=== PATIENT | male | born 1990 | race Caucasian/White ===

== ENCOUNTER 2018-09-25 11:35 | Emergency (ER) | payer SELFPAY ==
[2018-09-25] MEDS ORDERED: ALBUTEROL 2.5 MG/3 ML NEB SOL ONE (12:18)
[2018-09-25] MEDS ORDERED: IPRATROPIUM BROM 0.5MG/2.5ML ONE (12:18)
--- NOTE | 2018-09-25 12:36 | RAD REPORT ---
EXAM DESCRIPTION: RAD - Chest Pa And Lat (2 Views) - 09/25/2018 12:30 pm CLINICAL HISTORY: Hemoptysis;Cough Chest pain. COMPARISON: No comparisons FINDINGS: The lungs are clear. The heart is normal in size. No displaced fractures. IMPRESSION: No acute or concerning finding suspected.
--- NOTE | 2018-09-25 13:02 | ER ---
Nurse's Notes [facility] Name: Stanton Florez Jr Age: 27 yrs Sex: Male : 1990 Arrival Date: 09/25/2018 Time: 11:37 Bed 11 Private MD: Diagnosis: Influenza due to identified novel influenza A virus with other respiratory manifestations Presentation: 09/25 11:41 Presenting complaint: Productive cough, sore throat, sinus congestion, chills, and hb nausea x 2 days. Transition of care: patient was not received from another setting of care. Onset of symptoms was September 24, 2018. Risk Assessment: Do you want to hurt yourself or someone else? Patient reports no desire to harm self or others. Care prior to arrival: None. 11:41 Method Of Arrival: Ambulatory hb 11:41 Acuity: EDMUNDO 4 hb 11:55 Initial Sepsis Screen: Does the patient meet any 2 criteria? No. Patient's initial aa5 sepsis screen is negative. Does the patient have a suspected source of infection? No. Patient's initial sepsis screen is negative. Historical: - Allergies: 11:42 No Known Allergies; hb - Home Meds: 11:42 None [Active]; hb - PMHx: 11:42 None; hb - PSHx: 11:42 Ear Tubes; hb - Immunization history:: Adult Immunizations up to date. - Social history:: Smoking status: Patient/guardian denies using tobacco. - Ebola Screening: : No symptoms or risks identified at this time. Screenin:55 Abuse screen: Denies threats or abuse. Nutritional screening: No deficits noted. aa5 Tuberculosis screening: No symptoms or risk factors identified. Fall Risk None identified. Vital Signs: 11:42 BP 125 / 82; Pulse 102; Resp 18; Temp 97.3; Pulse Ox 96% on R/A; Weight 129.27 kg; hb Height 5 ft. 10 in. (177.80 cm); Pain 6/10; 11:42 Body Mass Index 40.89 (129.27 kg, 177.80 cm) hb ED Course: 11:37 Patient arrived in ED. as 11:42 Triage completed. hb 11:42 Arm band placed on. hb 11:47 Edenilson Cárdenas PA is PHCP. cp 11:47 Sean Ferrell MD is Attending Physician. cp 11:53 Maryjane Solano, RN is Primary Nurse. aa5 11:55 Patient has correct armband on for positive identification. Bed in low position. Call aa5 light in reach. Side rails up X 1. 11:56 Flu and/or RSV swab sent to lab. Strep swab sent to lab. aa5 12:18 Patient moved to radiology via wheelchair. jb2 12:28 X-ray completed. Patient tolerated procedure well. Patient moved back from radiology. jb2 12:30 XRAY Chest Pa And Lat (2 Views) In Process Unspecified. EDMS Administered Medications: 12:11 Drug: Albuterol 2.5 mg Route: Inhalation; aa5 12:11 Drug: AtroVENT Aerosol 0.5 mg Route: Inhalation; aa5 Outcome: 13:01 Discharge ordered by . cp 13:11 Patient left the ED. aa5 Signatures: Dispatcher [employer] EDMS Gerry Yap jb2 Shayy Ozuna Audri, RN RN aa5 Edenilson Cárdenas PA PA cp Olga Strong, JOSE RN hb
--- NOTE | 2018-09-25 13:02 | EDPHYS ---
Physician Documentation [facility] Name: Stanton Florez Jr Age: 27 yrs Sex: Male : 1990 Arrival Date: 09/25/2018 Time: 11:37 Bed 11 Private MD: ED Physician Sean Ferrell HPI: 09/25 11:53 This 27 yrs old Male presents to ER via Ambulatory with complaints of Flu cp Symptoms. 11:53 The patient or guardian reports cough, that is intermittent, with productive sputum, cp that is purulent, with streaks of blood. 11:53 Onset: The symptoms/episode began/occurred 2 day(s) ago. Associated signs and symptoms: cp Pertinent positives: chest pain, with cough, fever, sore throat, Pertinent negatives: diarrhea, vomiting. Severity of symptoms: in the emergency department the symptoms are unchanged despite home interventions. Historical: - Allergies: 11:42 No Known Allergies; hb - Home Meds: 11:42 None [Active]; hb - PMHx: 11:42 None; hb - PSHx: 11:42 Ear Tubes; hb - Immunization history:: Adult Immunizations up to date. - Social history:: Smoking status: Patient/guardian denies using tobacco. - Ebola Screening: : No symptoms or risks identified at this time. ROS: 12:00 Constitutional: Negative for body aches, fever, poor PO intake. cp 12:00 Eyes: Negative for injury, pain, redness, and discharge. cp 12:00 ENT: Positive for sore throat, Negative for drainage from ear(s), ear pain, difficulty swallowing, difficulty handling secretions. 12:00 Cardiovascular: Positive for chest pain, with cough. 12:00 Respiratory: Positive for cough, with blood streaked sputum, Negative for wheezing. 12:00 Abdomen/GI: Negative for abdominal pain, vomiting, diarrhea, constipation. 12:00 Skin: Negative for cellulitis, rash. 12:00 Neuro: Negative for altered mental status, headache, weakness. 12:00 All other systems are negative. Exam: 12:05 Constitutional: The patient appears in no acute distress, alert, awake, cp non-diaphoretic, non-toxic, well developed, well nourished, obese. 12:05 Head/Face: Normocephalic, atraumatic. cp 12:05 Eyes: Periorbital structures: appear normal, Conjunctiva: normal, no exudate, no injection, Sclera: no appreciated abnormality, Lids and lashes: appear normal, bilaterally. 12:05 ENT: External ear(s): are unremarkable, Ear canal(s): are normal, clear, TM's: bulging, is not appreciated, bilaterally, dullness, bilaterally, erythema, is not appreciated, bilaterally, Nose: is normal, Mouth: Lips: moist, Oral mucosa: moist, Posterior pharynx: Airway: no evidence of obstruction, patent, Tonsils: no enlargement, no exudate, swelling, is not appreciated, erythema, that is mild, exudate, is not appreciated. 12:05 Neck: ROM/movement: is normal, is supple, without pain, no range of motions limitations, no meningismus, no nuchal rigidity. 12:05 Chest/axilla: Inspection: normal, Palpation: is normal, no crepitus, no tenderness. 12:05 Cardiovascular: Rate: tachycardic, Rhythm: regular, Edema: is not appreciated, JVD: is not appreciated. 12:05 Respiratory: the patient does not display signs of respiratory distress, Respirations: normal, no use of accessory muscles, no retractions, no splinting, no tachypnea, labored breathing, is not present, Breath sounds: bronchial sounds, that are mild, stridor, is not appreciated, + upper airway congestion. wheezing: is not appreciated. 12:05 Abdomen/GI: Inspection: obese Vital Signs: 11:42 BP 125 / 82; Pulse 102; Resp 18; Temp 97.3; Pulse Ox 96% on R/A; Weight 129.27 kg; hb Height 5 ft. 10 in. (177.80 cm); Pain 6/10; 11:42 Body Mass Index 40.89 (129.27 kg, 177.80 cm) hb MDM: 11:47 Patient medically screened. cp 13:00 Data reviewed: vital signs, nurses notes, lab test result(s), radiologic studies, plain cp films. 13:00 Differential diagnosis: bronchitis, flu, URI, pneumonia. Test interpretation: by ED cp physician or midlevel provider: plain radiologic studies. Counseling: I had a detailed discussion with the patient and/or guardian regarding: the historical points, exam findings, and any diagnostic results supporting the discharge/admit diagnosis, lab results, radiology results, to return to the emergency department if symptoms worsen or persist or if there are any questions or concerns that arise at home. Response to treatment: the patient's symptoms have mildly improved after treatment. 09/25 11:53 Order name: Influenza Screen (a \T\ B); Complete Time: 12:26 09/25 12:55 Interpretation: Abnormal: FLUA FLU A ----- \T\nbsp; \T\nbsp; \T\nbsp; \T\nbsp; \T\nbsp; \T\nbs p; cp \T\nbsp; \T\nbsp; \T\nbsp; POSITIVE for FLU A protein antigen. 03 11:53 Order name: Strep; Complete Time: 12:26 09/25 11:53 Order name: XRAY Chest Pa And Lat (2 Views); Complete Time: 12:55 09/25 12:55 Interpretation: Report reviewed. 09/25 12:21 Order name: Throat Culture EDMS Administered Medications: 12:11 Drug: Albuterol 2.5 mg Route: Inhalation; aa5 12:11 Drug: AtroVENT Aerosol 0.5 mg Route: Inhalation; aa5 Disposition: 14:48 Co-signature as Attending Physician, Sean Ferrell MD. rn Disposition: 09/25/18 13:01 Discharged to Home. Impression: Influenza due to identified novel influenza A virus with other respiratory manifestations. - Condition is Stable. - Discharge Instructions: Influenza, Adult. - Prescriptions for Ibuprofen 800 mg Oral Tablet - take 1 tablet by ORAL route every 8 hours As needed take with food; 30 tablet. Tamiflu 75 mg Oral Capsule - take 1 capsule by ORAL route every 12 hours for 5 days; 10 capsule. Tessalon Perles 100 mg Oral Capsule - take 1 capsule by ORAL route every 8 hours As needed; 15 capsule. Albuterol Sulfate 90 mcg/actuation - inhale 1-2 puff by INHALATION route every 4-6 hours; 1 Inhaler. - Work release form, Medication Reconciliation Form, Thank You Letter, Antibiotic Education, Prescription Opioid Use form. - Follow up: Private Physician; When: 2 - 3 days; Reason: Worsening of condition. - Problem is new. - Symptoms have improved. Signatures: Dispatcher [employer] EDMS Sean Ferrell MD MD rn Calderon, Audri, RN RN aa5 Edenilson Cárdenas PA PA cp Olga Strong RN RN Corrections: (The following items were deleted from the chart) 13:11 13:01 09/25/2018 13:01 Discharged to Home. Impression: Influenza due to identified aa5 novel influenza A virus with other respiratory manifestations. Condition is Stable. Forms are Medication Reconciliation Form, Thank You Letter, Antibiotic Education, Prescription Opioid Use. Follow up: Private Physician; When: 2 - 3 days; Reason: Worsening of condition. Problem is new. Symptoms have improved. cp
== END 2018-09-25 13:11 | disposition home or self-care (01) ==
LOC: ER 11:35
DX: J11.1 Influenza due to unidentified influenza virus with other respiratory manifestations (principal)
CPT/HCPCS: 71046; 87070; 87081; 87804; 99284

== ENCOUNTER 2019-02-11 11:04 | Emergency (ER) | payer SELFPAY ==
[2019-02-11] MEDS ORDERED: KETOROLAC 30 MG/ML INJ ONE (11:35)
[2019-02-11] MEDS ORDERED: dexAMETHasone 10 MG/ML VIAL ONE (11:35)
--- NOTE | 2019-02-11 12:31 | ER ---
Nurse's Notes [facility] Name: Stanton Florez Jr Age: 28 yrs Sex: Male : 1990 Arrival Date: 02/11/2019 Time: 11:07 Bed 6 Private MD: Diagnosis: Low back pain Presentation: 02/11 11:13 Presenting complaint: Patient states: Low back pain since this AM. Transition of care: aj patient was not received from another setting of care. Onset of symptoms was February 11, 2019. Risk Assessment: Do you want to hurt yourself or someone else? Patient reports no desire to harm self or others. Initial Sepsis Screen: Does the patient meet any 2 criteria? No. Patient's initial sepsis screen is negative. Does the patient have a suspected source of infection? No. Patient's initial sepsis screen is negative. Care prior to arrival: None. 11:13 Method Of Arrival: Ambulatory 11:13 Acuity: EDMUNDO 4 Triage Assessment: 11:14 General: Appears in no apparent distress. comfortable, Behavior is calm, cooperative, aj appropriate for age. Pain: Complains of pain in low back area. Neuro: Level of Consciousness is awake, alert, obeys commands, Oriented to person, place, time, situation, Appropriate for age. Respiratory: Airway is patent Respiratory effort is even, unlabored, Respiratory pattern is regular, symmetrical. Derm: Skin is intact, is healthy with good turgor, Skin is pink, warm \T\ dry. normal. Musculoskeletal: Circulation, motion, and sensation intact. Range of motion: intact in all extremities, Reports pain in low back area. Historical: - Allergies: 11:14 No Known Allergies; aj - Immunization history:: Adult Immunizations up to date. - Social history:: Smoking status: Patient/guardian denies using tobacco. - Ebola Screening: : Patient negative for fever greater than or equal to 101.5 degrees Fahrenheit, and additional compatible Ebola Virus Disease symptoms Patient denies exposure to infectious person Patient denies travel to an Ebola-affected area in the 21 days before illness onset No symptoms or risks identified at this time. - Family history:: not pertinent. Screenin:22 Abuse screen: Denies threats or abuse. Denies injuries from another. Nutritional hj screening: No deficits noted. Tuberculosis screening: No symptoms or risk factors identified. Fall Risk None identified. Assessment: 11:22 General: Appears in no apparent distress. uncomfortable, Behavior is calm, cooperative, hj appropriate for age. Pain: Complains of pain in right low back and left low back and low back area. Neuro: Level of Consciousness is awake, alert, obeys commands, Oriented to person, place, time, situation, Appropriate for age. Cardiovascular: Heart tones S1 S2 present Capillary refill < 3 seconds Patient's skin is warm and dry. Respiratory: Airway is patent Respiratory effort is even, unlabored, Respiratory pattern is regular, symmetrical. GI: No signs and/or symptoms were reported involving the gastrointestinal system. : No signs and/or symptoms were reported regarding the genitourinary system. EENT: No signs and/or symptoms were reported regarding the EENT system. Derm: No signs and/or symptoms reported regarding the dermatologic system. Musculoskeletal: Reports pain in right low back and left low back. 12:01 Reassessment: Patient and/or family updated on plan of care and expected duration. Pain hj level reassessed. Patient is alert, oriented x 3, equal unlabored respirations, skin warm/dry/pink. awaiting XRAY:. 12:24 Reassessment: walked to XRAY;. hj 12:31 Reassessment: back in room;. hj 12:39 Reassessment: awaiting for provider to talk to pt for results and POC;. hj 12:51 Reassessment: awaiting for final read or result to cross over;. hj 13:14 Reassessment: provider in room for POC and D/C instructions;. Vital Signs: 11:14 BP 138 / 70; Pulse 94; Resp 16; Temp 97.6; Pulse Ox 98% on R/A; Weight 129.27 kg; aj Height 5 ft. 10 in. (177.80 cm); 12:15 BP 110 / 55; Pulse 90; Resp 18; Pulse Ox 100% on R/A; hj 11:14 Body Mass Index 40.89 (129.27 kg, 177.80 cm) ED Course: 11:07 Patient arrived in ED. as 11:09 Bipin Wei RN is Primary Nurse. 11:10 Edenilson Ness MD is Attending Physician. [facility] 11:14 Triage completed. 11:14 Arm band placed on left wrist. Patient placed in an exam room. aj 11:22 Patient has correct armband on for positive identification. Bed in low position. Call hj light in reach. Side rails up X 1. 12:32 X-ray completed. Patient tolerated procedure well. Patient moved back from radiology. [facility] 12:32 Lumbar Spine (3 Views) XRAY In Process Unspecified. EDMS 13:17 No provider procedures requiring assistance completed. Patient did not have IV access hj during this emergency room visit. Administered Medications: 11:15 Drug: TORadol 60 mg Route: IM; Site: left deltoid; hj 12:31 Follow up: Response: No adverse reaction; Pain is decreased hj 11:15 Drug: Decadron 10 mg Route: IM; Site: right deltoid; hj 12:31 Follow up: Response: No adverse reaction; Pain is decreased hj Outcome: 12:30 Discharge ordered by . gwen 13:17 Discharged to home ambulatory. 13:17 Condition: stable 13:17 Discharge instructions given to patient, Instructed on discharge instructions, follow up and referral plans. medication usage, Demonstrated understanding of instructions, follow-up care, medications, Prescriptions given X 4. 13:17 Patient left the ED. hj Signatures: Dispatcher [employer] Eunice Heath, RN RN Edenilson Hurd MD MD cha Harvey, [facility] Shayy Ozuna Henry, RN RN pranav Corrections: (The following items were deleted from the chart) 12:24 12:24 Reassessment: walked thru XRAY; hj
--- NOTE | 2019-02-11 12:31 | EDPHYS ---
Physician Documentation [facility] Name: Stanton Florez Jr Age: 28 yrs Sex: Male : 1990 Arrival Date: 02/11/2019 Time: 11:07 Bed 6 Private MD: JACKIE Physician Edenilson Ness HPI: 02/11 11:15 This 28 yrs old Male presents to ER via Ambulatory with complaints of Back gwen Pain. 11:15 The patient presents with pain that is acute. The symptoms are located in the low back. gwen Onset: The symptoms/episode began/occurred 1 day(s) ago. The pain does not radiate. Associated signs and symptoms: The patient has no apparent associated signs or symptoms. The problem was sustained when bending over, from twisting. Modifying factors: The patient symptoms are alleviated by remaining still, rest, the patient symptoms are aggravated by any movement, bending. Severity of symptoms: At their worst the symptoms were moderate, severe, in the emergency department the symptoms have improved, mildly. The patient has experienced similar episodes in the past, a few times. Historical: - Allergies: 11:14 No Known Allergies; aj - Immunization history:: Adult Immunizations up to date. - Social history:: Smoking status: Patient/guardian denies using tobacco. - Ebola Screening: : Patient negative for fever greater than or equal to 101.5 degrees Fahrenheit, and additional compatible Ebola Virus Disease symptoms Patient denies exposure to infectious person Patient denies travel to an Ebola-affected area in the 21 days before illness onset No symptoms or risks identified at this time. - Family history:: not pertinent. ROS: 11:15 Constitutional: Negative for fever, chills, and weight loss, Eyes: Negative for injury, gwen pain, redness, and discharge, ENT: Negative for injury, pain, and discharge, Neck: Negative for injury, pain, and swelling, Cardiovascular: Negative for chest pain, palpitations, and edema, Respiratory: Negative for shortness of breath, cough, wheezing, and pleuritic chest pain, Abdomen/GI: Negative for abdominal pain, nausea, vomiting, diarrhea, and constipation, : Negative for injury, bleeding, discharge, and swelling, MS/Extremity: Negative for injury and deformity, Skin: Negative for injury, rash, and discoloration, Neuro: Negative for headache, weakness, numbness, tingling, and seizure, Psych: Negative for depression, anxiety, suicide ideation, homicidal ideation, and hallucinations, Allergy/Immunology: Negative for hives, rash, and allergies, Endocrine: Negative for neck swelling, polydipsia, polyuria, polyphagia, and marked weight changes, Hematologic/Lymphatic: Negative for swollen nodes, abnormal bleeding, and unusual bruising. 11:15 Back: Positive for decreased range of motion, pain at rest, pain with movement. Exam: 11:15 Constitutional: This is a well developed, well nourished patient who is awake, alert, gwen and in no acute distress. Head/Face: Normocephalic, atraumatic. Eyes: Pupils equal round and reactive to light, extra-ocular motions intact. Lids and lashes normal. Conjunctiva and sclera are non-icteric and not injected. Cornea within normal limits. Periorbital areas with no swelling, redness, or edema. ENT: Nares patent. No nasal discharge, no septal abnormalities noted. Tympanic membranes are normal and external auditory canals are clear. Oropharynx with no redness, swelling, or masses, exudates, or evidence of obstruction, uvula midline. Mucous membranes moist. Neck: Trachea midline, no thyromegaly or masses palpated, and no cervical lymphadenopathy. Supple, full range of motion without nuchal rigidity, or vertebral point tenderness. No Meningismus. Chest/axilla: Normal chest wall appearance and motion. Nontender with no deformity. No lesions are appreciated. Cardiovascular: Regular rate and rhythm with a normal S1 and S2. No gallops, murmurs, or rubs. Normal PMI, no JVD. No pulse deficits. Respiratory: Lungs have equal breath sounds bilaterally, clear to auscultation and percussion. No rales, rhonchi or wheezes noted. No increased work of breathing, no retractions or nasal flaring. Abdomen/GI: Soft, non-tender, with normal bowel sounds. No distension or tympany. No guarding or rebound. No evidence of tenderness throughout. Male : Normal genitalia with no discharge or lesions. Skin: Warm, dry with normal turgor. Normal color with no rashes, no lesions, and no evidence of cellulitis. MS/ Extremity: Pulses equal, no cyanosis. Neurovascular intact. Full, normal range of motion. Neuro: Awake and alert, GCS 15, oriented to person, place, time, and situation. Cranial nerves II-XII grossly intact. Motor strength 5/5 in all extremities. Sensory grossly intact. Cerebellar exam normal. Normal gait. Psych: Awake, alert, with orientation to person, place and time. Behavior, mood, and affect are within normal limits. 11:15 Back: pain, that is moderate, ROM is painful, normal spinal alignment noted, CVA tenderness, that is mild, muscle spasm, is appreciated in the left low back and right low back. Vital Signs: 11:14 BP 138 / 70; Pulse 94; Resp 16; Temp 97.6; Pulse Ox 98% on R/A; Weight 129.27 kg; aj Height 5 ft. 10 in. (177.80 cm); 12:15 BP 110 / 55; Pulse 90; Resp 18; Pulse Ox 100% on R/A; hj 11:14 Body Mass Index 40.89 (129.27 kg, 177.80 cm) MDM: 11:12 Patient medically screened. [facility] 11:17 Data reviewed: vital signs, nurses notes, radiologic studies, plain films. [facility] 02/11 11:15 Order name: Lumbar Spine (3 Views) XRAY; Complete Time: 13:14 [facility] Administered Medications: 11:15 Drug: TORadol 60 mg Route: IM; Site: left deltoid; 12:31 Follow up: Response: No adverse reaction; Pain is decreased 11:15 Drug: Decadron 10 mg Route: IM; Site: right deltoid; 12:31 Follow up: Response: No adverse reaction; Pain is decreased Disposition: 02/11/19 12:30 Discharged to Home. Impression: Low back pain. - Condition is Stable. - Discharge Instructions: Back Pain, Adult, Musculoskeletal Pain, Back Injury Prevention, [id number], Back Pain, Adult, [id number]. - Prescriptions for Ibuprofen 600 mg Oral Tablet - take 1 tablet by ORAL route every 6 hours As needed take with food; 30 tablet. Skelaxin 800 mg Oral Tablet - take 1 tablet by ORAL route every 6 hours As needed; 40 tablet. Tylenol- Codeine #3 300-30 mg Oral Tablet - take 2 tablet by ORAL route every 6 hours As needed; 30 tablet. Medrol (Caleb) 4 mg Oral Tablets, Dose Pack - take 1 tablet by ORAL route as directed - follow package instructions; 1 packet. - Medication Reconciliation Form, Thank You Letter, Antibiotic Education, Prescription Opioid Use, Work release form form. - Follow up: Private Physician; When: 2 - 3 days; Reason: Recheck today's complaints, Continuance of care, Re-evaluation by your physician. - Problem is new. - Symptoms have improved. Signatures: Dispatcher [employer] Eunice Heath RN RN aj Anderson, Corey, MD MD cha Joaquin, Henry, RN RN hj Corrections: (The following items were deleted from the chart) 13:17 12:30 02/11/2019 12:30 Discharged to Home. Impression: Low back pain. Condition is hj Stable. Discharge Instructions: Back Pain, Adult, Musculoskeletal Pain, Back Injury Prevention, [id number], Back Pain, Adult, [id number]. Prescriptions for Ibuprofen 600 mg Oral Tablet - take 1 tablet by ORAL route every 6 hours As needed take with food; 30 tablet, Skelaxin 800 mg Oral Tablet - take 1 tablet by ORAL route every 6 hours As needed; 40 tablet, Tylenol-Codeine #3 300-30 mg Oral Tablet - take 2 tablet by ORAL route every 6 hours As needed; 30 tablet, Medrol (Caleb) 4 mg Oral Tablets, Dose Pack - take 1 tablet by ORAL route as directed - follow package instructions; 1 packet. and Forms are Medication Reconciliation Form, Thank You Letter, Antibiotic Education, Prescription Opioid Use. Follow up: Private Physician; When: 2 - 3 days; Reason: Recheck today's complaints, Continuance of care, Re-evaluation by your physician. Problem is new. Symptoms have improved. gwen
--- NOTE | 2019-02-11 12:54 | RAD REPORT ---
EXAM DESCRIPTION: RAD - Lumbar Spine 3 Views - 02/11/2019 12:35 pm CLINICAL HISTORY: Back pain FINDINGS: The alignment of the lumbar spine is satisfactory. No fracture or dislocation is seen. Mild spondylosis involves L5-S1 consisting disc space narrowing and osteophytes.
== END 2019-02-11 13:17 | disposition home or self-care (01) ==
LOC: ER 11:04
DX: M54.5 Low back pain (principal)
CPT/HCPCS: 72100; 96372; 99283; J1100

== ENCOUNTER 2019-03-12 11:47 | Emergency (ER) | payer SELFPAY ==
[2019-03-12] MEDS ORDERED: NA CHLORIDE 0.9% 1,000 ML ONE (12:01)
[2019-03-12 12:18] LABS: Absolute Lymphocytes (CBC) 2.1 K/uL (0.7-4.9); Basophils % 0.9 % (0-1.3); Hematocrit 43.9 % (39.6-49.0); Lymphocytes % 22.9 % (15.3-44.8); MPV 8.5 fL (7.6-11.3); RBC Red Blood Cell Count 5.09 M/uL (4.33-5.43)
[2019-03-12 12:33] LABS: Potassium 3.7 mmol/L (3.5-5.1)
--- NOTE | 2019-03-12 14:15 | ER ---
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 jl7 Transition of care: patient was not received from another setting of care. Onset of symptoms was March 12, 2019. Risk Assessment: Do you want to hurt yourself or someone else? Patient reports no desire to harm self or others. Initial Sepsis Screen: Does the patient meet any 2 criteria? No. Patient's initial sepsis screen is negative. Does the patient have a suspected source of infection? No. Patient's initial sepsis screen is negative. Care prior to arrival: Medication(s) given: Normal saline infusion, 1000 mL, IV initiated. 18 GA, in the left antecubital area. 11:53 Method Of Arrival: EMS: [facility] 11:53 Acuity: EDMUNDO 3 jl7 Triage Assessment: 11:55 General: Appears in no apparent distress. uncomfortable, obese, Behavior is calm, jl7 cooperative, drowsy. Pain: Complains of pain in left ambrose Pain currently is 1 out of 10 on a pain scale. EENT: No signs and/or symptoms were reported regarding the EENT system. Neuro: Level of Consciousness is awake, obeys commands, drowsy. Oriented to person, place, time, situation. Cardiovascular: Patient's skin is warm and dry. Pulses are 3+ in right radial artery and left radial artery Chest pain is denied. Respiratory: Airway is patent Respiratory effort is even, unlabored, Respiratory pattern is regular, symmetrical, Breath sounds are clear bilaterally. GI: No signs and/or symptoms were reported involving the gastrointestinal system. : No signs and/or symptoms were reported regarding the genitourinary system. Derm: Skin is pink, warm \T\ dry. Musculoskeletal: No signs and/or symptoms reported regarding the musculoskeletal system. Historical: - Allergies: 11:55 No Known Allergies; jl7 - Home Meds: 11:55 None [Active]; jl7 - PMHx: 11:55 None; jl7 - Immunization history:: Adult Immunizations unknown. - Social history:: Smoking status: Patient uses tobacco products, smokes one-half pack cigarettes per day. - Ebola Screening: : No symptoms or risks identified at this time. - Family history:: not pertinent. - Hospitalizations: : No recent hospitalization is reported. Screenin:06 Abuse screen: Denies threats or abuse. Denies injuries from another. Nutritional jl7 screening: No deficits noted. Tuberculosis screening: No symptoms or risk factors identified. Fall Risk No fall in past 12 months (0 pts). No secondary diagnosis (0 pts). IV access (20 points). Ambulatory Aid- None/Bed Rest/Nurse Assist (0 pts). Gait- Weak (10 pts.). Mental Status- Oriented to own ability (0 pts). Total Carter Fall Scale indicates Low Risk Score (25-44 pts). Fall prevention measures have been instituted. Side Rails Up X 2 Placed close to Nursing Station Frequent Obs/Assesments occuring As available Patient and Family Educated on Fall Prevention Program and strategies. Assessment: 12:06 General: See triage assessment. jl7 13:08 Reassessment: Patient appears in no apparent distress at this time. No changes from jl7 previously documented assessment. Patient and/or family updated on plan of care and expected duration. Pain level reassessed. Patient is alert, oriented x 3, equal unlabored respirations, skin warm/dry/pink. Vital Signs: 11:55 BP 126 / 74; Pulse 92; Resp 14 S; Temp 97.4(O); Pulse Ox 95% on R/A; Weight 127.01 kg jl7 (R); Height 5 ft. 10 in. (177.80 cm) (R); Pain 1/10; 13:08 BP 143 / 88; Pulse 76; Resp 14 S; Pulse Ox 100% on R/A; jl7 11:55 Body Mass Index 40.18 (127.01 kg, 177.80 cm) jl7 ED Course: 11:50 Patient arrived in ED. rn 11:50 Sean Ferrell MD is Attending Physician. rn 11:53 Pepe Haynes RN is Primary Nurse. jl7 11:55 Triage completed. jl7 11:55 Arm band placed on right wrist. jl7 12:06 Patient has correct armband on for positive identification. Placed in gown. Bed in low jl7 position. Call light in reach. Side rails up X2. monitoring analyst on. Pulse ox on. NIBP on. Warm blanket given. 12:06 Initial lab(s) drawn, by ED staff, sent to lab. Maintain EMS IV. Dressing intact. Good jl7 blood return noted. Site clean \T\ dry. Gauge \T\ site: 18 left AC. 12:18 EKG done, by remote sensing technician. reviewed by Sean Ferrell MD. 3 14:33 No provider procedures requiring assistance completed. IV discontinued, intact, jl7 bleeding controlled, No redness/swelling at site. Pressure dressing applied. Administered Medications: 12:05 Drug: NS 0.9% 1000 ml {Note: administered by EMS.} Route: IV; Rate: 1000 ml; Site: left jl7 antecubital; 12:06 Follow up: Response: No adverse reaction; IV Status: Completed infusion; IV Intake: jl7 1000ml 12:06 Drug: NS 0.9% 1000 ml Route: IV; Rate: 1000 ml; Site: left antecubital; jl7 13:30 Follow up: IV Status: Completed infusion; IV Intake: 1000ml jl7 Intake: 12:06 IV: 1000ml; Total: 1000ml. jl7 13:30 IV: 1000ml; Total: 2000ml. jl7 Outcome: 14:14 Discharge ordered by . rn 14:33 Discharged to home ambulatory. jl7 14:33 Condition: stable 14:33 Discharge instructions given to patient, Instructed on discharge instructions, follow up and referral plans. Demonstrated understanding of instructions, follow-up care. 14:33 Patient left the ED. jl7 Signatures: Sean Ferrell MD MD rn Leal, Jahala, RN RN jl7 Aleta Walden 3
--- NOTE | 2019-03-12 14:16 | EDPHYS ---
Physician Documentation [facility] Name: Stanton Florez Jr Age: 28 yrs Sex: Male : 1990 Arrival Date: 03/12/2019 Time: 11:50 Bed 7 Private MD: ED Physician Sean Ferrell HPI: 03/12 11:55 This 28 yrs old Male presents to ER via Unassigned with complaints of heat rn exhaustion. 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 EMS gave .5L fluid and iced him, unable to obtain initial temp, + sweating at scene, has improved, initial heart rate was elevated, now normalized. . Onset: The symptoms/episode began/occurred today. Severity of symptoms: At their worst the symptoms were moderate in the emergency department the symptoms are unchanged. The patient has not experienced similar symptoms in the past. The patient has not recently seen a physician. Historical: - Allergies: 11:55 No Known Allergies; jl7 - Home Meds: 11:55 None [Active]; jl7 - PMHx: 11:55 None; jl7 - Immunization history:: Adult Immunizations unknown. - Social history:: Smoking status: Patient uses tobacco products, smokes one-half pack cigarettes per day. - Ebola Screening: : No symptoms or risks identified at this time. - Family history:: not pertinent. - Hospitalizations: : No recent hospitalization is reported. ROS: 11:55 Constitutional: Negative for fever, chills, and weight loss, Eyes: Negative for injury, rn pain, redness, and discharge, Neck: Negative for injury, pain, and swelling, Cardiovascular: Negative for chest pain, palpitations, and edema, Respiratory: Negative for shortness of breath, cough, wheezing, and pleuritic chest pain, Abdomen/GI: Negative for abdominal pain, nausea, vomiting, diarrhea, and constipation, MS/Extremity: Negative for injury and deformity, Skin: Negative for injury, rash, and discoloration, Neuro: Negative for headache, numbness, tingling, and seizure. Exam: 11:55 Constitutional: Overweight male, appears fatigued and tired Head/Face: Normocephalic, rn atraumatic. Eyes: Pupils equal round and reactive to light, extra-ocular motions intact. Lids and lashes normal. Conjunctiva and sclera are non-icteric and not injected. Cornea within normal limits. Periorbital areas with no swelling, redness, or edema. ENT: dry MM Neck: Trachea midline, no thyromegaly or masses palpated, and no cervical lymphadenopathy. Supple, full range of motion without nuchal rigidity, or vertebral point tenderness. No Meningismus. Cardiovascular: Regular rate and rhythm. No pulse deficits. Respiratory: Lungs have equal breath sounds bilaterally, clear to auscultation. No increased work of breathing, no retractions or nasal flaring. Abdomen/GI: soft, non-tender MS/ Extremity: Pulses equal, no cyanosis. Neurovascular intact. Full, normal range of motion. Equal circumference. Neuro: Awake, somnolent, 4/5 strength all 4 extremities, follows commands, weak vocal responses, sensation intact Vital Signs: 11:55 BP 126 / 74; Pulse 92; Resp 14 S; Temp 97.4(O); Pulse Ox 95% on R/A; Weight 127.01 kg jl7 (R); Height 5 ft. 10 in. (177.80 cm) (R); Pain /10; 13:08 BP 143 / 88; Pulse 76; Resp 14 S; Pulse Ox 100% on R/A; jl7 11:55 Body Mass Index 40.18 (127.01 kg, 177.80 cm) jl7 MDM: 11:50 Patient medically screened. rn 13:36 Response to treatment: the patient's symptoms have markedly improved after treatment. rn 14:13 Differential Diagnosis heat exhaustion, dehydration, rhabdo. Data reviewed: vital rn signs, nurses notes, lab test result(s), and as a result, I will discharge patient. Counseling: I had a detailed discussion with the patient and/or guardian regarding: the historical points, exam findings, and any diagnostic results supporting the discharge/admit diagnosis, lab results, the need for outpatient follow up, to return to the emergency department if symptoms worsen or persist or if there are any questions or concerns that arise at home. Special discussion: I discussed with the patient/guardian in detail that at this point there is no indication for admission to the hospital. It is understood, however, that if the symptoms persist or worsen the patient needs to return immediately for re-evaluation. ED course: Ambulatory to bathroom, much more alert, will dc home. . 03/12 11:52 Order name: CBC with Diff; Complete Time: 13:13 rn 03/12 11:52 Order name: Basic Metabolic Panel; Complete Time: 13:13 rn 03/12 11:52 Order name: CK; Complete Time: 13:13 rn 03/12 11:53 Order name: Urine Microscopic Only rn 03/12 14:09 Order name: Urine Dipstick--Ancillary (enter results) bd 03/12 11:52 Order name: IV Start; Complete Time: 12:06 rn 03/12 11:52 Order name: EKG - Nurse/Tech; Complete Time: 12:26 rn 03/12 11:52 Order name: EKG; Complete Time: 11:53 rn 03/12 11:53 Order name: Urine Dipstick-Ancillary (obtain specimen); Complete Time: 14:16 rn Administered Medications: 12:05 Drug: NS 0.9% 1000 ml {Note: administered by EMS.} Route: IV; Rate: 1000 ml; Site: left [facility] antecubital; 12:06 Follow up: Response: No adverse reaction; IV Status: Completed infusion; IV Intake: jl7 1000ml 12:06 Drug: NS 0.9% 1000 ml Route: IV; Rate: 1000 ml; Site: left antecubital; jl7 13:30 Follow up: IV Status: Completed infusion; IV Intake: 1000ml jl7 Disposition: 03/12/19 14:14 Discharged to Home. Impression: Heat exhaustion, unspecified, Dehydration. - Condition is Stable. - Discharge Instructions: Dehydration, Adult, Heat Exhaustion Information. - Medication Reconciliation Form, Thank You Letter, Antibiotic Education, Prescription Opioid Use form. - Follow up: Private Physician; When: As needed; Reason: Recheck today's complaints, Re-evaluation by your physician. - Problem is new. - Symptoms have improved. Signatures: Dispatcher [employer] EDMS Sean Ferrell MD MD rn Leal, Jahala, RN RN jl7 Corrections: (The following items were deleted from the chart) 14:33 14:14 03/12/2019 14:14 Discharged to Home. Impression: Heat exhaustion, unspecified; jl7 Dehydration. Condition is Stable. Forms are Medication Reconciliation Form, Thank You Letter, Antibiotic Education, Prescription Opioid Use. Follow up: Private Physician; When: As needed; Reason: Recheck today's complaints, Re-evaluation by your physician. Problem is new. Symptoms have improved. rn
[2019-03-12 16:05] LABS: Urine Amorphous Sediment 1+ /HPF (NONE SEEN); Urine Bacteria <20 /HPF (NONE SEEN); Urine Culture Reflex Order NOT NEEDED; Urine Mucus 4+ /HPF (NONE SEEN); Urine RBC <5 /HPF (NONE SEEN)
[2019-03-12 16:12] LABS: Urine Blood NEGATIVE (NEG); Urine Glucose NEGATIVE (NEG); Urine Protein NEGATIVE (NEG); Urine pH 5.5 (5.0-7.0)
--- NOTE | 2019-03-12 18:25 | EKG ---
Test Date: 2019-03-12 Test Time: 12:17:31 Life Enrichment Assistant: ESTELLE MEASUREMENT RESULTS: Intervals: Rate: 80 CA: 156 QRSD: 102 QT: 386 QTc: 445 [place]: P: 59 CA: 156 QRS: 45 T: 1 INTERPRETIVE STATEMENTS: Normal sinus rhythm Normal ECG No previous ECG available for comparison Electronically Signed On 03-12-19 18:23:46 CDT by Jaiden Siegel
== END 2019-03-12 14:33 | disposition home or self-care (01) ==
LOC: ER 11:47
DX: E86.0 Dehydration (principal); T67.5XXA Heat exhaustion, unspecified, initial encounter; F17.210 Nicotine dependence, cigarettes, uncomplicated
CPT/HCPCS: 36415; 80048; 81003; 81015; 82550; 85025; 93005; 96360; 99284; J7030

== ENCOUNTER 2019-03-25 10:56 | Emergency (ER) | payer SELFPAY ==
[2019-03-25] MEDS ORDERED: METHYLPREDNISOLONE 125 MG INJ ONE (12:15)
[2019-03-25] MEDS ORDERED: NA CHLORIDE 0.9% 500 ML ONE (12:16)
[2019-03-25] MEDS ORDERED: IPRATROPIUM BROM 0.5MG/2.5ML ONE (12:16)
[2019-03-25] MEDS ORDERED: ALBUTEROL 2.5 MG/3 ML NEB SOL ONE (12:16)
[2019-03-25 12:21] LABS: Absolute Lymphocytes (CBC) 2.1 K/uL (0.7-4.9); Basophils % 1.1 % (0-1.3); Hematocrit 44.1 % (39.6-49.0); Lymphocytes % 28.9 % (15.3-44.8); MPV 8.4 fL (7.6-11.3); RBC Red Blood Cell Count 5.06 M/uL (4.33-5.43)
[2019-03-25 12:23] LABS: Protime INR 0.96
[2019-03-25 12:38] LABS: ALT/SGPT 62 U/L (12-78); AST/SGOT 28 U/L (15-37); Albumin 3.6 g/dL (3.4-5.0); Alkaline Phosphatase 111 U/L (45-117); BUN Blood Urea Nitrogen 11 mg/dL (7-18); Bicarbonate 25 mmol/L (21-32); Bilirubin Direct 0.1 mg/dL (0-0.2); Bilirubin Total 0.4 mg/dL (0.2-1.0); Glucose Level 86 mg/dL (74-106); NT PRO-BNP 32 pg/mL (<125); Potassium 4.3 mmol/L (3.5-5.1); Protein, Total 8.2 g/dL (6.4-8.2); Sodium Level 141 mmol/L (136-145); Troponin (Emerg Dept Use Only) < 0.02 ng/mL (0.0-0.045)
--- NOTE | 2019-03-25 12:54 | RAD REPORT ---
EXAM DESCRIPTION: RAD - Chest Single View - 03/25/2019 12:44 pm CLINICAL HISTORY: HEMOPTYSIS Chest pain. COMPARISON: Chest Pa And Lat (2 Views) dated 09/25/2018 FINDINGS: Portable technique limits examination quality. The lungs are grossly clear. The heart is normal in size. No displaced fractures. IMPRESSION: No acute intrathoracic process suspected.
--- NOTE | 2019-03-25 13:52 | ER ---
Nurse's Notes [facility] Name: Stanton Florez Jr Age: 28 yrs Sex: Male : 1990 Arrival Date: 03/25/2019 Time: 11:00 Bed 20 Private MD: Diagnosis: Bronchitis, not specified as acute or chronic;Hemoptysis Presentation: 03/25 11:08 Presenting complaint: Patient states: "i started coughing up blood this morning". Pt aa5 also reports sore throat x 1 week, denies chills/fever/night sweats. Transition of care: patient was not received from another setting of care. Onset of symptoms was March 25, 2019. Risk Assessment: Do you want to hurt yourself or someone else? Patient reports no desire to harm self or others. Initial Sepsis Screen: Does the patient meet any 2 criteria? No. Patient's initial sepsis screen is negative. Does the patient have a suspected source of infection? No. Patient's initial sepsis screen is negative. Care prior to arrival: None. 11:08 Acuity: EDMUNDO 3 aa5 11:08 Method Of Arrival: Ambulatory aa5 Triage Assessment: 11:10 General: Appears in no apparent distress. comfortable, Behavior is cooperative, bp appropriate for age, anxious. Pain: Complains of pain in THROAT. EENT: Reports pain in THROAT. Neuro: No deficits noted. Cardiovascular: No deficits noted. Respiratory: No deficits noted. GI: No signs and/or symptoms were reported involving the gastrointestinal system. : No signs and/or symptoms were reported regarding the genitourinary system. Derm: No deficits noted. Musculoskeletal: No deficits noted. Historical: - Allergies: 11:10 No Known Allergies; aa5 - PMHx: 11:10 None; aa5 - PSHx: 11:10 None; aa5 - Immunization history:: Flu vaccine is not up to date. - Social history:: Smoking status: Patient uses tobacco products, denies chronic smoking, but will smoke occasionally. - Ebola Screening: : No symptoms or risks identified at this time. Screenin:02 Abuse screen: Denies threats or abuse. Denies injuries from another. Nutritional bp screening: No deficits noted. Tuberculosis screening: No symptoms or risk factors identified. Fall Risk None identified. Assessment: 11:10 General: SEE TRIAGE NOTE. bp 12:02 Reassessment: AT B/S. bp 13:00 Reassessment: NEB IN PROCESS, RESULTS PENDING. bp 14:23 Reassessment: PT D/C HOME AMBULATORY, DX WITH BRONCHITIS. bp Vital Signs: 11:10 BP 132 / 77; Pulse 89; Resp 16 S; Temp 98.1(O); Pulse Ox 96% on R/A; Weight 129.27 kg aa5 (R); Height 5 ft. 10 in. (177.80 cm) (R); Pain 5/10; 12:22 BP 112 / 52; Pulse 70; Resp 18; Pulse Ox 100% ; bp 13:30 BP 120 / 62; Pulse 83; Resp 16; Pulse Ox 99% on R/A; mh5 14:07 BP 121 / 76; Pulse 76; Resp 17; Temp 98.6(O); Pulse Ox 100% on R/A; mh5 11:10 Body Mass Index 40.89 (129.27 kg, 177.80 cm) aa5 ED Course: 11:00 Patient arrived in ED. mr 11:08 Arm band placed on. aa5 11:09 Triage completed. aa5 11:45 Caleb Palma MD is Attending Physician. kdr 12:00 Cliff Jacques, JOSE is Primary Nurse. bp 12:02 Patient has correct armband on for positive identification. Bed in low position. Call bp light in reach. Side rails up X2. 12:10 Inserted saline lock: 20 gauge in right forearm, using aseptic technique. Blood bp collected. 12:46 XRAY Chest (1 view) In Process Unspecified. EDMS 14:23 No provider procedures requiring assistance completed. IV discontinued, intact, bp bleeding controlled, No redness/swelling at site. Pressure dressing applied. Administered Medications: 12:10 Drug: NS 0.9% 500 ml Route: IV; Rate: bolus; Site: right forearm; bp 14:22 Follow up: IV Status: Completed infusion; IV Intake: 500ml bp 12:10 Drug: Albuterol - atroVENT (3:1) (2.5 mg - 0.5 mg) 3 ml Route: Nebulizer; bp 14:22 Follow up: Response: Marked relief of symptoms bp 12:10 Drug: SOLU-Medrol 125 mg Route: IVP; Site: right forearm; bp 14:22 Follow up: Response: Marked relief of symptoms bp Intake: 14:22 IV: 500ml; Total: 500ml. bp Outcome: 13:51 Discharge ordered by . kdr 14:23 Discharged to home ambulatory. bp 14:23 Condition: stable 14:23 Discharge instructions given to patient, Instructed on discharge instructions, follow up and referral plans. medication usage, Demonstrated understanding of instructions, follow-up care, medications, Prescriptions given X 3. 14:24 Patient left the ED. bp Signatures: Dispatcher [employer] EDMS Caleb Palma MD MD kdr Rivera, Mary mr SolanoMaryjane, RN RN maribel5 Ronel Ozuna Brian, RN RN bp
--- NOTE | 2019-03-25 13:53 | EDPHYS ---
Physician Documentation [facility] Name: Stanton Florez Jr Age: 28 yrs Sex: Male : 1990 Arrival Date: 03/25/2019 Time: 11:00 Bed 20 Private MD: ED Physician Caleb Palma HPI: 03/25 15:25 This 28 yrs old Male presents to ER via Ambulatory with complaints of kdr Coughing up blood. 15:25 The patient has had an upper respiratory infection with cough for about a week. He kdr smokes about a pack a week . Onset: The symptoms/episode began/occurred gradually, 1 week(s) ago, The today while in the shower, he expelled a large blood clot. Then when he got of the shower, is coughed up more blood. Severity of symptoms: At their worst the symptoms were mild in the emergency department the symptoms are unchanged. The patient has not experienced similar symptoms in the past. The patient has not recently seen a physician. Historical: - Allergies: 11:10 No Known Allergies; aa5 - PMHx: 11:10 None; aa5 - PSHx: 11:10 None; aa5 - Immunization history:: Flu vaccine is not up to date. - Social history:: Smoking status: Patient uses tobacco products, denies chronic smoking, but will smoke occasionally. - Ebola Screening: : No symptoms or risks identified at this time. ROS: 15:25 Constitutional: Negative for fever, chills, and weight loss, Eyes: Negative for injury, kdr pain, redness, and discharge, ENT: Negative for injury, pain, and discharge, Neck: Negative for injury, pain, and swelling, Cardiovascular: Negative for chest pain, palpitations, and edema, Abdomen/GI: Negative for abdominal pain, nausea, vomiting, diarrhea, and constipation, Back: Negative for injury and pain, : Negative for injury, bleeding, discharge, and swelling, MS/Extremity: Negative for injury and deformity, Skin: Negative for injury, rash, and discoloration, Neuro: Negative for headache, weakness, numbness, tingling, and seizure activity. Psych: Negative for depression, anxiety, suicide ideation, homicidal ideation, and hallucinations, Allergy/Immunology: Negative for hives, rash, and allergies, Endocrine: Negative for neck swelling, polydipsia, polyuria, polyphagia, and marked weight changes, Hematologic/Lymphatic: Negative for swollen nodes, abnormal bleeding, and unusual bruising. 15:25 Respiratory: Positive for cough, Red, hemoptysis, wheezing. Exam: 15:25 Constitutional: This is a well developed, well nourished patient who is awake, alert, kdr and in no acute distress. Head/Face: Normocephalic, atraumatic. Eyes: Pupils equal round and reactive to light, extra-ocular motions intact. Lids and lashes normal. Conjunctiva and sclera are non-icteric and not injected. Cornea within normal limits. Periorbital areas with no swelling, redness, or edema. Neck: Trachea midline, no thyromegaly or masses palpated, and no cervical lymphadenopathy. Supple, full range of motion without nuchal rigidity, or vertebral point tenderness. No Meningismus. Chest/axilla: Normal chest wall appearance and motion. Nontender with no deformity. No lesions are appreciated. Cardiovascular: Regular rate and rhythm with a normal S1 and S2. No gallops, murmurs, or rubs. Normal PMI, no JVD. No pulse deficits. Respiratory: Lungs have equal breath sounds bilaterally, clear to auscultation and percussion. No rales, rhonchi or wheezes noted. No increased work of breathing, no retractions or nasal flaring. Abdomen/GI: Soft, non-tender, with normal bowel sounds. No distension or tympany. No guarding or rebound. No evidence of tenderness throughout. Back: No spinal tenderness. No costovertebral tenderness. Full range of motion. Skin: Warm, dry with normal turgor. Normal color with no rashes, no lesions, and no evidence of cellulitis. MS/ Extremity: Pulses equal, no cyanosis. Neurovascular intact. Full, normal range of motion. Neuro: Awake and alert, GCS 15, oriented to person, place, time, and situation. Cranial nerves II-XII grossly intact. Motor strength 5/5 in all extremities. Sensory grossly intact. Cerebellar exam normal. Normal gait. Psych: Awake, alert, with orientation to person, place and time. Behavior, mood, and affect are within normal limits. Vital Signs: 11:10 BP 132 / 77; Pulse 89; Resp 16 S; Temp 98.1(O); Pulse Ox 96% on R/A; Weight 129.27 kg aa5 (R); Height 5 ft. 10 in. (177.80 cm) (R); Pain 5/10; 12:22 BP 112 / 52; Pulse 70; Resp 18; Pulse Ox 100% ; bp 13:30 BP 120 / 62; Pulse 83; Resp 16; Pulse Ox 99% on R/A; mh5 14:07 BP 121 / 76; Pulse 76; Resp 17; Temp 98.6(O); Pulse Ox 100% on R/A; mh5 11:10 Body Mass Index 40.89 (129.27 kg, 177.80 cm) aa5 MDM: 13:51 Patient medically screened. kdr 15:25 Data reviewed: vital signs, nurses notes, lab test result(s), radiologic studies. kdr Counseling: I had a detailed discussion with the patient and/or guardian regarding: the historical points, exam findings, and any diagnostic results supporting the discharge/admit diagnosis, lab results, radiology results, the need for outpatient follow up. 03/25 11:48 Order name: Basic Metabolic Panel; Complete Time: 12:52 [facility] 03/25 11:48 Order name: CBC with Diff; Complete Time: 12:52 [facility] 03/25 11:48 Order name: LFT's; Complete Time: 12:52 [facility] 03/25 11:48 Order name: Magnesium; Complete Time: 12:52 [facility] 03/25 11:48 Order name: NT PRO-BNP; Complete Time: 12:52 [facility] 03/25 11:48 Order name: PT-INR; Complete Time: 12:52 [facility] 03/25 11:48 Order name: Troponin (emerg Dept Use Only); Complete Time: 12:52 [facility] 03/25 11:48 Order name: XRAY Chest (1 view); Complete Time: 13:55 [facility] 03/25 11:48 Order name: Cardiac monitoring; Complete Time: 12:02 [facility] 03/25 11:48 Order name: IV Saline Lock; Complete Time: 12:22 [facility] 03/25 11:48 Order name: Labs collected and sent; Complete Time: 12:22 [facility] 03/25 11:48 Order name: O2 Per Protocol; Complete Time: 12:02 [facility] 03/25 11:48 Order name: O2 Sat Monitoring; Complete Time: 12:02 kdr Administered Medications: 12:10 Drug: NS 0.9% 500 ml Route: IV; Rate: bolus; Site: right forearm; bp 14:22 Follow up: IV Status: Completed infusion; IV Intake: 500ml bp 12:10 Drug: Albuterol - atroVENT (3:1) (2.5 mg - 0.5 mg) 3 ml Route: Nebulizer; bp 14:22 Follow up: Response: Marked relief of symptoms bp 12:10 Drug: SOLU-Medrol 125 mg Route: IVP; Site: right forearm; bp 14:22 Follow up: Response: Marked relief of symptoms bp Disposition: 03/25/19 13:51 Discharged to Home. Impression: Bronchitis, not specified as acute or chronic, Hemoptysis. - Condition is Stable. - Discharge Instructions: Hemoptysis, How to Use an Inhaler, Acute Bronchitis, Cxwo-yc-Loyz, Upper Respiratory Infection, Adult, [id number]-Xcmv, Cough, Adult, Qwqx-ko-Iygl. - Prescriptions for Tessalon Perles 100 mg Oral Capsule - take 1 capsule by ORAL route every 8 hours As needed; 15 capsule. Zithromax Z- Caleb 250 mg Oral Tablet - take 1 tablet by ORAL route as directed for 5 days Day 1 - take two (2) tablets one time. Day 2, 3, 4 , 5 take one (1) tablet once daily.; 6 tablet. Albuterol Sulfate 90 mcg/actuation Inhalation - inhale 1-2 puff by INHALATION route every 4-6 hours; 2 Inhaler. - Medication Reconciliation Form, Thank You Letter, Antibiotic Education, Work release form form. - Follow up: Private Physician; When: 2 - 3 days; Reason: If symptoms return, Further diagnostic work-up, Recheck today's complaints, Continuance of care, Re-evaluation by your physician. - Problem is new. - Symptoms have improved. Signatures: Dispatcher [employer] EDMS Caleb Palma MD MD [facility] Maryjane Solano RN RN aa5 Cliff Jacques RN RN bp Corrections: (The following items were deleted from the chart) 14:24 13:51 03/25/2019 13:51 Discharged to Home. Impression: Bronchitis, not specified as bp acute or chronic; Hemoptysis. Condition is Stable. Forms are Medication Reconciliation Form, Thank You Letter, Antibiotic Education, Prescription Opioid Use. Follow up: Private Physician; When: 2 - 3 days; Reason: If symptoms return, Further diagnostic work-up, Recheck today's complaints, Continuance of care, Re-evaluation by your physician. Problem is new. Symptoms have improved. kdr
[2019-03-25 17:45] VITALS: BP 121/76; TEMP 98.6; O2SAT 100
== END 2019-03-25 14:24 | disposition home or self-care (01) ==
LOC: ER 10:56
DX: J40 Bronchitis, not specified as acute or chronic (principal); F17.210 Nicotine dependence, cigarettes, uncomplicated
CPT/HCPCS: 36415; 71045; 80048; 80076; 83735; 83880; 84484; 85025; 85610; 94640; 96361; 96374; 99284; J2930

== ENCOUNTER 2019-06-17 11:11 | Emergency (ER) | payer SELFPAY ==
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
[2019-06-17 15:24] VITALS: BP 128/89; TEMP 98; O2SAT 100
== END 2019-06-17 15:05 | disposition home or self-care (01) ==
LOC: ER 11:11
DX: S22.31XA Fracture of one rib, right side, initial encounter for closed fracture (principal); W21.11XA Struck by baseball bat, initial encounter; Y93.9 Activity, unspecified; Y92.9 Unspecified place or not applicable; Z72.0 Tobacco use
CPT/HCPCS: 71045; 99283

== ENCOUNTER 2019-10-07 16:03 | Emergency (ER) | payer SELFPAY ==
--- NOTE | 2019-10-07 16:52 | EDPHYS ---
Physician Documentation [facility] Name: Stanton Florez Jr Age: 28 yrs Sex: Male : 1990 Arrival Date: 10/07/2019 Time: 16:08 Bed 18 Private MD: ED Physician Vandana Arnett HPI: 10/06 16:46 This 28 yrs old Male presents to ER via Unassigned with complaints of Cough. pm1 16:46 The patient or guardian reports cough, with no sputum. Onset: The symptoms/episode pm1 began/occurred Chronic from smoking per patient. Severity of symptoms: in the emergency department the symptoms are unchanged. Severity of symptoms: in the emergency department the symptoms are unchanged. Modifying factors: The symptoms are alleviated by nothing, the symptoms are aggravated by Smoking. Associated signs and symptoms: The patient has no apparent associated signs or symptoms, Pertinent negatives: chest pain, diarrhea, ear ache, fever, rhinorrhea, sore throat, vomiting, shortness of breath. The patient has not recently seen a physician. Patient was going to work today and there was a medical tent at the entrance of his work. He cough and they required him to get a work note to return to work. Patient reports that he has his usual chronic smoker's cough. Historical: - Allergies: 16:25 No Known Allergies; aa5 - Home Meds: 16:25 None [Active]; aa5 - PMHx: 16:25 None; aa5 - PSHx: 16:25 None; aa5 - Immunization history:: Adult Immunizations up to date. - Social history:: Smoking status: Patient reports the use of cigarette tobacco products, smokes one-half pack cigarettes per day. ROS: 16:46 Constitutional: Negative for fever, chills, and weight loss, Eyes: Negative for injury, pm1 pain, redness, and discharge, ENT: Negative for injury, pain, and discharge, Neck: Negative for injury, pain, and swelling, Cardiovascular: Negative for chest pain, palpitations, and edema. 16:46 Abdomen/GI: Negative for abdominal pain, nausea, vomiting, diarrhea, and constipation, Back: Negative for injury and pain, MS/Extremity: Negative for injury and deformity, Skin: Negative for injury, rash, and discoloration, Neuro: Negative for headache, weakness, numbness, tingling, and seizure. 16:46 Respiratory: Positive for cough, Negative for shortness of breath, sputum production, wheezing. Exam: 16:46 Constitutional: This is a well developed, well nourished patient who is awake, alert, pm1 and in no acute distress. Head/Face: Normocephalic, atraumatic. ENT: Nares patent. No nasal discharge, no septal abnormalities noted. Tympanic membranes are normal and external auditory canals are clear. Oropharynx with no redness, swelling, or masses, exudates, or evidence of obstruction, uvula midline. Mucous membranes moist. Neck: Trachea midline, no thyromegaly or masses palpated, and no cervical lymphadenopathy. Supple, full range of motion without nuchal rigidity, or vertebral point tenderness. No Meningismus. Chest/axilla: Normal chest wall appearance and motion. Nontender with no deformity. No lesions are appreciated. Cardiovascular: Regular rate and rhythm with a normal S1 and S2. No gallops, murmurs, or rubs. No pulse deficits. Respiratory: Lungs have equal breath sounds bilaterally, clear to auscultation and percussion. No rales, rhonchi or wheezes noted. No increased work of breathing, no retractions or nasal flaring. Abdomen/GI: Soft, non-tender, with normal bowel sounds. No distension or tympany. No guarding or rebound. No evidence of tenderness throughout. Back: No spinal tenderness. No costovertebral tenderness. Full range of motion. Skin: Warm, dry with normal turgor. Normal color with no rashes, no lesions, and no evidence of cellulitis. MS/ Extremity: Pulses equal, no cyanosis. Neurovascular intact. Full, normal range of motion. 16:46 Neuro: Exam negative for acute changes, Orientation: is normal, Motor: is normal, moves all fours. Vital Signs: 16:25 BP 111 / 52; Pulse 71; Resp 18 S; Temp 98.6(O); Pulse Ox 98% on R/A; Weight 129.27 kg aa5 (R); Height 5 ft. 11 in. (180.34 cm) (R); Pain 0/10; 16:25 Body Mass Index 39.75 (129.27 kg, 180.34 cm) aa5 MDM: 16:36 Patient medically screened. pm1 16:46 Data reviewed: vital signs. Data interpreted: Pulse oximetry: on room air is 98 %. pm1 Interpretation: normal. Counseling: I had a detailed discussion with the patient and/or guardian regarding: the historical points, exam findings, and any diagnostic results supporting the discharge/admit diagnosis, the need for outpatient follow up, a family practitioner, to return to the emergency department if symptoms worsen or persist or if there are any questions or concerns that arise at home, smoking cessation. 16:46 Refusal of service: The patient/guardian displays adequate decision making capability pm1 and despite a detailed discussion of alternatives, benefits, risks, and consequences refuses: all lab tests, all X-rays, Patient reports his standard smoker's cough and he is just here to get a work note as recommended by a clinic. Patient was calling doctor's offices and clinics to get cleared to return to work. The last clinic he called recommended that he just go to the ER, pay the copay, and get a work note. Administered Medications: No medications were administered Disposition: 10/07/19 16:50 Discharged to Home. Impression: Cough. - Condition is Stable. - Discharge Instructions: Steps to Quit Smoking, Smoking Hazards, Cough, Adult. - Work release form, Medication Reconciliation Form, Thank You Letter, Antibiotic Education, Prescription Opioid Use form. - Follow up: Emergency Department; When: As needed; Reason: Worsening of condition. Follow up: Private Physician; When: 2 - 3 days; Reason: Recheck today's complaints, Continuance of care, Re-evaluation by your physician. - Problem is new. - Symptoms have improved. Addendum: 10/08/2019 18:48 Co-signature as Attending Physician, Vandana Arnett MD. m a2 Signatures: Maryjane Solano, RN RN aa5 Db Hamilton NP [employer] pm1 Vandana Arnett MD MD ma2 Corrections: (The following items were deleted from the chart) 10/06 17:11 16:50 10/07/2019 16:50 Discharged to Home. Impression: Cough. Condition is Stable. aa5 Forms are Medication Reconciliation Form, Thank You Letter, Antibiotic Education, Prescription Opioid Use. Follow up: Emergency Department; When: As needed; Reason: Worsening of condition. Follow up: Private Physician; When: 2 - 3 days; Reason: Recheck today's complaints, Continuance of care, Re-evaluation by your physician. Problem is new. Symptoms have improved. pm1
--- NOTE | 2019-10-07 17:12 | ER ---
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 Pt reports baseline smoker's cough and congestion x 2-3 days ago. Denies fever. 16:25 Coronavirus screen: Patient denies fever greater than 100.4F, cough, shortness of aa5 breath, or difficulty breathing. Proceed with normal triage process. Ebola Screen: Patient negative for fever greater than or equal to 101.5 degrees Fahrenheit, and additional compatible Ebola Virus Disease symptoms. Initial Sepsis Screen: Does the patient meet any 2 criteria? No. Patient's initial sepsis screen is negative. Does the patient have a suspected source of infection? No. Patient's initial sepsis screen is negative. Risk Assessment: Do you want to hurt yourself or someone else? Patient reports no desire to harm self or others. 16:25 Method Of Arrival: Ambulatory aa5 16:25 Acuity: [id number] 5 aa5 Historical: - Allergies: 16:25 No Known Allergies; aa5 - Home Meds: 16:25 None [Active]; aa5 - PMHx: 16:25 None; aa5 - PSHx: 16:25 None; aa5 - Immunization history:: Adult Immunizations up to date. - Social history:: Smoking status: Patient reports the use of cigarette tobacco products, smokes one-half pack cigarettes per day. Screenin:30 Abuse screen: Denies threats or abuse. Nutritional screening: No deficits noted. aa5 Tuberculosis screening: No symptoms or risk factors identified. Fall Risk None identified. Assessment: 16:25 General: Appears comfortable, Behavior is calm, cooperative. Pain: Denies pain. Neuro: aa5 Level of Consciousness is awake, alert, obeys commands, Oriented to person, place, time, situation. Cardiovascular: Heart tones S1 S2 present Rhythm is regular. Respiratory: Reports "smoker's cough" Airway is patent Respiratory effort is even, unlabored, Respiratory pattern is regular, symmetrical, Denies shortness of breath. GI: No signs and/or symptoms were reported involving the gastrointestinal system. : No signs and/or symptoms were reported regarding the genitourinary system. EENT: Reports nasal congestion. Derm: Skin is pink, warm \\T\\ dry. Musculoskeletal: Range of motion: intact in all extremities. 17:10 Reassessment: Patient is alert, oriented x 3, equal unlabored respirations, skin aa5 warm/dry/pink. Vital Signs: 16:25 BP 111 / 52; Pulse 71; Resp 18 S; Temp 98.6(O); Pulse Ox 98% on R/A; Weight 129.27 kg aa5 (R); Height 5 ft. 11 in. (180.34 cm) (R); Pain 0/10; 16:25 Body Mass Index 39.75 (129.27 kg, 180.34 cm) aa5 ED Course: 16:08 Patient arrived in ED. mr 16:25 Arm band placed on Patient placed in an exam room, on a stretcher. aa5 16:25 Patient has correct armband on for positive identification. Bed in low position. Call aa5 light in reach. Side rails up X 1. 16:28 Maryjane Solano RN is Primary Nurse. aa5 16:34 Db Hamilton NP is PHCP. pm1 16:35 Vandana Arnett MD is Attending Physician. pm1 17:02 Triage completed. aa5 17:10 No provider procedures requiring assistance completed. Patient did not have IV access aa5 during this emergency room visit. Administered Medications: No medications were administered Outcome: 16:50 Discharge ordered by . pm1 17:10 Discharged to home ambulatory. aa5 17:10 Condition: good 17:10 Discharge instructions given to patient, Instructed on discharge instructions, follow up and referral plans. Demonstrated understanding of instructions, follow-up care. 17:11 Patient left the ED. aa5 Signatures: Scarlett Ellington mr Maryjane Solano, JOSE RN aa5 Db Hamilton NP PROSTHODONTIST/EDUCATOR pm1
[2019-10-07 17:30] VITALS: BP 111/52; TEMP 98.6; O2SAT 98
== END 2019-10-07 17:11 | disposition home or self-care (01) ==
LOC: ER 16:03
DX: R05 Cough (principal); F17.210 Nicotine dependence, cigarettes, uncomplicated
CPT/HCPCS: 99281

== ENCOUNTER 2019-10-23 08:24 | Emergency (ER) | payer SELFPAY ==
[2019-10-23 11:00] VITALS: TEMP 97.7; O2SAT 100
[2019-10-23 11:01] VITALS: BP 124/66
== END 2019-10-23 10:52 | disposition home or self-care (01) ==
LOC: ER 08:24
DX: F43.0 Acute stress reaction (principal); F17.210 Nicotine dependence, cigarettes, uncomplicated
CPT/HCPCS: 36415; 71045; 80048; 80076; 80320; 80329; 85025; 85610; 85730; 93005; 96360; 99284; J7030